=== PATIENT | female | born 1985 ===

== ENCOUNTER 2023-11-30 08:58 | Day surgery (SDC) | payer BC ==
[2023-11-28 13:33] VITALS: BMI 29.9
[~2023-11-30 08:58] MED LIST: LACTATED RINGERS 1,000 ML IV SCH
[2023-11-30] MEDS: IV FLUID CONTINUATION 1,000 ML IV ONE (09:25)
[2023-11-30 09:37] LABS: Glucose,Whole Blood 87 mg/dL (70-110)
[2023-11-30 09:42] VITALS: TEMP 98.5
[2023-11-30] MEDS ORDERED: PROPOFOL 10 MG/ML 20 ML VIAL IV ONE (09:46)
--- NOTE | 2023-11-30 10:04 | P.PCN ---
Date of Procedure: 11/30/23 Procedure(s) Performed: Brief history: Patient is a pleasant 38-year-old white female scheduled for an elective upper endoscopy as well as colonoscopy as a part of evaluation of GERD and screening for colon cancer. Her mother was diagnosed with colon cancer at age 46. Her maternal grandfather was also diagnosed with colon cancer at age 70. Procedure performed: Esophagogastroduodenoscopy Colonoscopy Preoperative diagnosis: GERD Screening for colon cancer and family history of colon cancer Anesthesia: MAC Procedure: After informed consent was obtained from the patient was brought into the endoscopy unit and IV sedation was administered by anesthesia under continuous monitoring. Initially upper endoscopy was done. The Olympus GF 160 video endoscope was inserted inserted into the mouth and esophagus intubated without any difficulty and was gradually advanced into the stomach and duodenum and carefully examined. The bulb and second part of the duodenum appeared normal. The scope was then withdrawn into the stomach adequately insufflated with air and upon careful examination the antrum and body, cardia and fundus appeared normal. The scope was then withdrawn into the esophagus. The GE junction was located at 40 cm to the incisors. It appeared regular with 1 superficial erosion consistent with LA grade a reflux esophagitis. Rest of the esophagus appeared normal. Patient tolerated the procedure well. At this time the patient continued to remain sedation. Initial digital rectal examination was normal. Olympus CF 160 video colonoscope was then inserted into the rectum and gradually advanced to the cecum without any difficulty. Careful examination was performed as the scope was gradually being withdrawn. The prep was excellent. The cecum, ascending colon, transverse colon, descending colon, sigmoid colon and rectum appeared normal. Retroflexion was performed in the rectum and no lesions were noted. Patient tolerated the procedure well. Impression: 1. Upper endoscopy revealed 1 superficial erosion at the GE junction consistent with LA grade A reflux esophagitis. 2. Colonoscopy was within normal limits with no evidence of colorectal neoplasia Recommendations: Findings of this examination were discussed with the patient as well as her family. Recommended repeat screening colonoscopy in 5 years because of the strong family history of colon cancer
[2023-11-30 10:45] VITALS: BP 124/78; PULSE 90; RESP 20
== END 2023-11-30 10:46 | disposition home or self-care (01) ==
LOC: ORWHC2ENDO 08:58
PROVIDERS: ATTEND Internal Medicine Gastroenterology
DX: Z12.11 Encounter for screening for malignant neoplasm of colon (principal); K21.9 Gastro-esophageal reflux disease without esophagitis; Z79.899 Other long term (current) drug therapy; Z90.49 Acquired absence of other specified parts of digestive tract; Z80.0 Family history of malignant neoplasm of digestive organs; Z98.890 Other specified postprocedural states; Z90.710 Acquired absence of both cervix and uterus
CPT/HCPCS: 45378; 43235; J2704